=== PATIENT | female | born 1985 | race Hispanic/Latino ===

== ENCOUNTER 2019-05-21 12:33 | Emergency (ER) | payer OTHER ==
[~2019-05-21] VITALS: Ht 170.2 cm; Wt 77.7 kg
[2019-05-21] MEDS ORDERED: DESO1TAB PO (12:38)
--- NOTE | 2019-05-21 13:48 | REP ---
Clinical: Crush injury. Technique: AP, lateral, bilateral oblique views of the left second digit. Findings: There is a subtle nondisplaced fracture involving the terminal tuft. No subcutaneous emphysema or foreign body. Impression: Very subtle nondisplaced fracture of the terminal tuft. Electronically Signed by Raghu Hung MD 05/21/2019 01:39 P
[2019-05-21] MEDS ORDERED: CEPHALEXIN 500 MG CAP PO ONE (15:00)
[2019-05-21] MEDS ORDERED: KEFL500C17 PO (15:08)
[2019-05-21 15:15] VITALS: BP 136/73
[2019-05-21] MEDS ORDERED: IBUPROFEN 600 MG TAB PO ONE (15:15)
== END 2019-05-21 15:16 | disposition home or self-care (01) ==
LOC: M ED 12:33
DX: S62.663A Nondisplaced fracture of distal phalanx of left middle finger, initial encounter for closed fracture (principal); S61.311A Laceration without foreign body of left index finger with damage to nail, initial encounter; W23.0XXA Caught, crushed, jammed, or pinched between moving objects, initial encounter; Y92.89 Other specified places as the place of occurrence of the external cause; Z88.1 Allergy status to other antibiotic agents; Z79.899 Other long term (current) drug therapy